=== PATIENT | male | born 1950 | race Caucasian/White ===

== ENCOUNTER 2025-07-19 16:07 | Inpatient (IN) | payer OTHER ==
[~2025-07-19] VITALS: Ht 195.6 cm; Wt 65.8 kg
[2025-07-19] VITALS (9 sets, daily range): BP systolic 90–122; BP diastolic 53–69; PULSE 68–72; RESP 14–21; TEMP 36.6–36.6404; O2SAT 97–100
[2025-07-19] MEDS: VANCOMYCIN 1G PREMIX 200 ML IV ONE (16:30)
[2025-07-19] MEDS: PIPERACILLIN/TAZO 3.375G/50ML 50 ML IV ONE (16:58)
[2025-07-19] MEDS: SODIUM CHLORIDE 0.9% 500 ML IV ONE (17:15)
[2025-07-19 19:05] LABS: HEMATOCRIT. 30.9 % (42.0-52.0); HEMOGLOBIN. 10.5 g/dL (14.0-18.0); MEAN PLATELET VOLUME 8.8 fl (7.4-10.4); PLATELET 92 x1000/uL (130-400); RED BLOOD CELL COUNT 3.31 mill/uL (4.7-6.1); RED CELL DISTRIBUTION WIDTH 19.9 % (11.6-14.6)
[2025-07-19] MEDS: SODIUM CHLORIDE 0.9% 1,000 ML IV ONE (19:11)
[2025-07-19 19:18] LABS: INR 1.6
[2025-07-19 19:21] LABS: TROPONIN I HIGH SENSITIVITY 6 ng/L (3.0-53); UREA NITROGEN BLOOD 40 mg/dL (9-23)
[2025-07-19 19:22] LABS: ASPARTATE AMINOTRANSFERASE 59 IU/L (<34)
[2025-07-19 19:23] LABS: BILIRUBIN DIRECT 1.4 mg/dL (<=3.0); BILIRUBIN TOTAL 2.1 mg/dL (0.1-1.0); PROTEIN TOTAL 5.4 g/dL (6.0-8.3)
[2025-07-19 19:26] LABS: CREATININE 9.3 mg/dL (0.6-1.3)
[2025-07-19 19:31] LABS: BAND% 1.0 % (1.0-6.0); LYMPHOCYTES % MANUAL 10.0 % (20.0-50.0); MONOCYTES % MANUAL 17.0 % (2.0-8.0); NEUTROPHILS % MANUAL 72.0 % (45.0-75.0); PLATELET ESTIMATE DECREASED
[2025-07-19] MEDS ORDERED: NOREPINEPHRINE 8 MG in DEXT 5% WATER 242 ML IV PRN (20:45)
[2025-07-19] MEDS: NOREPINEPHRINE 8MG/250ML PMX 250 ML IV PRN (20:57)
[2025-07-19] MEDS: MIDODRINE HCL 5MG TABLET PO SCH ×2 (21:19→23:07)
[2025-07-19] MEDS ORDERED: DOCUSATE SODIUM 100MG CAPSULE PO PRN (21:45)
[2025-07-19] MEDS ORDERED: IPRATROPIUM/ALBUTEROL 0.5-3(2.5)MG/3ML NEB HHN PRN (21:45)
[2025-07-19] MEDS ORDERED: CEFEPIME 1GM IN DEXT 5% 50ML IV SCH (21:45)
[2025-07-19] MEDS ORDERED: NALOXONE HCL 0.4MG/ML VIAL IV PRN (22:00)
[2025-07-19] MEDS ORDERED: DEXTROSE 50% WATER 50ML SYRINGE IV PRN (22:00)
[2025-07-19] MEDS: PANTOPRAZOLE SODIUM 40 MG/VIAL IV SCH (23:07)
[2025-07-19] MEDS: OCTREOTIDE ACETATE 50 MCG/ML 1ML IV SCH (23:08)
[2025-07-19] MEDS: PHYTONADIONE 10MG/ML INJ SUBCUT SCH (23:08)
[2025-07-19] MEDS: MORPHINE SULFATE 2 MG/ML INJ (NOT FOR IM USE) IV PRN (23:09)
[2025-07-20] VITALS (101 sets, daily range): BP systolic 51–123; BP diastolic 33–96; PULSE 71–112; RESP 11–26; TEMP 36.114–36.8; O2SAT 93–100
[2025-07-20] MEDS ORDERED: MORPHINE SULFATE 4 MG/ML INJ (FOR IV/IM USE) IV SCH ×2
[2025-07-20] MEDS: CEFEPIME 1GM PREMIX 50ML IV SCH ×2 (00:12→20:46)
[2025-07-20] MEDS ORDERED: MORPHINE SULFATE 2 MG/ML INJ (NOT FOR IM USE) IV ONE (02:50)
[2025-07-20] MEDS: MORPHINE SULFATE 2 MG/ML INJ (NOT FOR IM USE) IV SCH (03:00)
[2025-07-20] MEDS ORDERED: MIDODRINE HCL 5MG TABLET PO SCH (06:00)
[2025-07-20] MEDS: INSULIN LISPRO 100 UNITS/ML SUBCUT SCH (06:19)
[2025-07-20] MEDS: MIDODRINE HCL 5MG TABLET PO SCH (06:19)
[2025-07-20] MEDS: BLOOD SUGAR DIAGNOSTIC STRIP TEST SCH (06:19)
[2025-07-20 06:28] LABS: HEMOGLOBIN. 11.9 g/dL (14.0-18.0)
[2025-07-20 06:38] LABS: CREATINE KINASE MB FRACTION 1.9 ng/mL (0.5-3.6)
[2025-07-20 06:39] LABS: TROPONIN I HIGH SENSITIVITY 14.0 ng/L (3.0-53)
[2025-07-20 06:45] LABS: UREA NITROGEN BLOOD 41.0 mg/dL (9-23)
[2025-07-20 07:14] LABS: HEMATOCRIT. 35.4 % (42.0-52.0); RED BLOOD CELL COUNT 3.91 mill/uL (4.7-6.1); RED CELL DISTRIBUTION WIDTH 20.1 % (11.6-14.6)
[2025-07-20 07:15] LABS: CREATININE 9.4 mg/dL (0.6-1.3)
[2025-07-20 08:08] LABS: PHOSPHORUS 4.4 mg/dL (2.5-4.9)
[2025-07-20 08:22] LABS: CREATINE KINASE MB FRACTION 1.7 ng/mL (0.5-3.6)
[2025-07-20 08:23] LABS: TROPONIN I HIGH SENSITIVITY 7.0 ng/L (3.0-53)
[2025-07-20] MEDS: SODIUM ZIRCONIUM CYCLOSILICATE 10GM/PACKET PO NR (08:52)
[2025-07-20] MEDS: SODIUM BICARBONATE 8.4% 50MEQ/50ML SYR IV NR (08:52)
[2025-07-20] MEDS: MORPHINE SULFATE 2 MG/ML INJ (NOT FOR IM USE) IV PRN (09:29)
[2025-07-20 09:51] LABS: BAND% 1.0 % (1.0-6.0); EOSINOPHILS % MANUAL 1.0 % (0.0-5.0); LYMPHOCYTES % MANUAL 4.0 % (20.0-50.0); MONOCYTES % MANUAL 9.0 % (2.0-8.0); NEUTROPHILS % MANUAL 85.0 % (45.0-75.0)
[2025-07-20 09:55] LABS: PLATELET ESTIMATE NORMAL
[2025-07-20 09:56] LABS: PLATELET 161 x1000/uL (130-400)
[2025-07-20 10:28] LABS: INR 1.5
[2025-07-20 10:35] LABS: LACTATE DEHYDROGENASE 188.0 IU/L (120-246)
[2025-07-20 10:37] LABS: T4 FREE 0.86 ng/dL (0.89-1.76)
[2025-07-20] MEDS: CALCIUM GLUCONATE 100MG/ML 10ML VIAL IV NR (10:45)
[2025-07-20] MEDS: OCTREOTIDE 1,000 MCG in SODIUM CHLORIDE 0.9% 98 ML IV SCH (10:45)
[2025-07-20 11:28] LABS: CORTISOL 31.2 ucg/dL
[2025-07-20 11:33] LABS: VITAMIN B12 SERUM 1879 pg/mL (211-911)
[2025-07-20 11:34] LABS: FOLIC ACID (FOLATE) SERUM 11.36 ng/mL (>5.38)
[2025-07-20 12:06] LABS: HEPATITIS A AB IGM NEGATIVE (Negative); HEPATITIS B CORE AB IGM NEGATIVE (Negative)
[2025-07-20 12:07] LABS: HEPATITIS C AB NON REACTIVE (Neg) (Negative)
[2025-07-20] MEDS: NOREPINEPHRINE 8MG/250ML PMX 250 ML IV PRN (12:50)
[2025-07-20] MEDS: ALBUMIN HUMAN 25GM/100ML (25%) IV SCH (15:29)
[2025-07-20 16:46] LABS: BODY FLUID MONOCYTES 14 %; BODY FLUID WBC 50 /cu mm (0-200)
[2025-07-20 16:47] LABS: BODY FLUID RBC 13530 /cu mm (0-2000)
[2025-07-20] MEDS: LACTULOSE 20G/30ML UDC PO SCH (17:45)
[2025-07-21] VITALS (80 sets, daily range): BP systolic 76–119; BP diastolic 36–67; PULSE 88–120; RESP 11–21; TEMP 36.4–37.1; O2SAT 89–98
[2025-07-21 06:05] LABS: HEMATOCRIT. 35.6 % (42.0-52.0); HEMOGLOBIN. 11.8 g/dL (14.0-18.0); MEAN PLATELET VOLUME 8.9 fl (7.4-10.4); PLATELET 173 x1000/uL (130-400); RED BLOOD CELL COUNT 3.94 mill/uL (4.7-6.1); RED CELL DISTRIBUTION WIDTH 20.3 % (11.6-14.6)
[2025-07-21 06:25] LABS: UREA NITROGEN BLOOD 23 mg/dL (9-23)
[2025-07-21 06:29] LABS: ASPARTATE AMINOTRANSFERASE 43 IU/L (<34)
[2025-07-21 06:30] LABS: BILIRUBIN DIRECT 2.6 mg/dL (<=3.0)
[2025-07-21 06:31] LABS: BILIRUBIN TOTAL 4.7 mg/dL (0.1-1.0); PHOSPHORUS 5.3 mg/dL (2.5-4.9); PROTEIN TOTAL 5.4 g/dL (6.0-8.3)
[2025-07-21 06:56] LABS: CREATININE 5.9 mg/dL (0.6-1.3)
[2025-07-21] MEDS: CALCIUM ACETATE 667MG CAPSULE PO SCH (08:30)
[2025-07-21 10:55] LABS: BAND% 4.0 % (1.0-6.0); LYMPHOCYTES % MANUAL 2.0 % (20.0-50.0); MONOCYTES % MANUAL 12.0 % (2.0-8.0); NEUTROPHILS % MANUAL 82.0 % (45.0-75.0)
[2025-07-21 10:56] LABS: PLATELET ESTIMATE NORMAL
[2025-07-21 12:54] LABS: INR 1.4
[2025-07-21] MEDS: ALBUMIN HUMAN 25GM/100ML (25%) IV SCH (13:48)
[2025-07-21] MEDS: FOLIC ACID/VITAMIN B COMP W-C TABLET PO SCH (16:48)
[2025-07-21] MEDS: SODIUM ZIRCONIUM CYCLOSILICATE 10GM/PACKET PO NR (16:49)
[2025-07-21] MEDS ORDERED: ALBUMIN HUMAN 12.5GM/50ML (25%) IV SCH (19:30)
[2025-07-21] MEDS: ALBUMIN HUMAN 12.5GM/50ML (25%) IV SCH (22:35)
[2025-07-22] VITALS (92 sets, daily range): BP systolic 70–132; BP diastolic 38–103; PULSE 86–126; RESP 10–29; TEMP 36.33624–36.8; O2SAT 91–100
[2025-07-22] MEDS: DIPHENHYDRAMINE 12.5MG/5ML UDC PO SCH (01:44)
[2025-07-22 07:09] LABS: HEMATOCRIT. 34.0 % (42.0-52.0); HEMOGLOBIN. 11.5 g/dL (14.0-18.0); MEAN PLATELET VOLUME 9.3 fl (7.4-10.4); PLATELET 131 x1000/uL (130-400); RED BLOOD CELL COUNT 3.82 mill/uL (4.7-6.1); RED CELL DISTRIBUTION WIDTH 20.6 % (11.6-14.6)
[2025-07-22 07:13] LABS: UREA NITROGEN BLOOD 32 mg/dL (9-23)
[2025-07-22 07:17] LABS: ASPARTATE AMINOTRANSFERASE 45 IU/L (<34); BILIRUBIN DIRECT 2.8 mg/dL (<=3.0); BILIRUBIN TOTAL 4.3 mg/dL (0.1-1.0); PHOSPHORUS 4.3 mg/dL (2.5-4.9); PROTEIN TOTAL 5.4 g/dL (6.0-8.3)
[2025-07-22 07:32] LABS: CREATININE 7.1 mg/dL (0.6-1.3)
[2025-07-22 09:07] LABS: CA 19-9 < 2 U/mL (0-35); CARCINOEMBRYONIC AG - SEND OUT 5.8 ng/mL (0.0-4.7)
[2025-07-22 10:59] LABS: EOSINOPHILS % MANUAL 2.0 % (0.0-5.0); LYMPHOCYTES % MANUAL 8.0 % (20.0-50.0); MONOCYTES % MANUAL 16.0 % (2.0-8.0); NEUTROPHILS % MANUAL 74.0 % (45.0-75.0); PLATELET ESTIMATE NORMAL
[2025-07-22] MEDS: FLUDROCORTISONE ACETATE 0.1MG TABLET PO SCH (14:03)
[2025-07-22] MEDS: POLYETHYLENE GLYCOL 3350 (17GM) 1 DOSE PACK PO SCH (18:00)
[2025-07-22] MEDS: DIPHENHYDRAMINE 25MG CAPSULE PO SCH (21:31)
[2025-07-23] VITALS (110 sets, daily range): BP systolic 60–111; BP diastolic 35–90; PULSE 83–135; RESP 11–31; TEMP 36.3–37.1; O2SAT 91–98
[2025-07-23] MEDS: HYDROCODONE/ACETAMINOPHEN 5/325MG TABLET PO PRN (00:21)
[2025-07-23 04:34] LABS: PLATELET 140 x1000/uL (130-400); RED BLOOD CELL COUNT 3.77 mill/uL (4.7-6.1); RED CELL DISTRIBUTION WIDTH 21.1 % (11.6-14.6)
[2025-07-23 04:46] LABS: UREA NITROGEN BLOOD 30 mg/dL (9-23)
[2025-07-23 04:48] LABS: PHOSPHORUS 4.8 mg/dL (2.5-4.9)
[2025-07-23 05:00] LABS: CREATININE 6.2 mg/dL (0.6-1.3)
[2025-07-23] MEDS: ALBUMIN HUMAN 12.5GM/50ML (25%) IV NR ×2 (08:50→14:07)
[2025-07-23] MEDS: ONDANSETRON HCL 4MG/2ML INJ IV PRN (12:54)
[2025-07-23] MEDS: POLYETHYLENE GLYCOL 3350 (17GM) 1 DOSE PACK PO SCH (14:07)
[2025-07-23] MEDS ORDERED: VASOPRESSIN 20 UNIT in SODIUM CHLORIDE 0.9% 99 ML IV PRN (20:30)
[2025-07-23] MEDS: PANTOPRAZOLE 80 MG in SODIUM CHLORIDE 0.9% 100 ML IV SCH (21:29)
[2025-07-23] MEDS: HYDROMORPHONE HCL/PF 1MG/ML INJ IV SCH (21:34)
[2025-07-23] MEDS: ALBUMIN HUMAN 12.5GM/50ML (25%) IV SCH (21:54)
[2025-07-24] VITALS (9 sets, daily range): BP systolic 78–96; BP diastolic 33–60; PULSE 98–112; RESP 12–27; O2SAT 89–98
[2025-07-24 04:01] LABS: HEMATOCRIT. 32.1 % (42.0-52.0); HEMOGLOBIN. 10.0 g/dL (14.0-18.0); RED BLOOD CELL COUNT 3.17 mill/uL (4.7-6.1); RED CELL DISTRIBUTION WIDTH 22.5 % (11.6-14.6)
[2025-07-24 04:14] LABS: UREA NITROGEN BLOOD 39 mg/dL (9-23)
[2025-07-24 04:16] LABS: PHOSPHORUS 7.8 mg/dL (2.5-4.9)
[2025-07-24] MEDS: HYDROMORPHONE HCL/PF 1MG/ML INJ IV SCH (04:17)
[2025-07-24 04:19] LABS: CREATININE 7.5 mg/dL (0.6-1.3)
[2025-07-24] MEDS ORDERED: SODIUM ZIRCONIUM CYCLOSILICATE 10GM/PACKET PO SCH (05:00)
[2025-07-24 09:46] LABS: LYMPHOCYTES % MANUAL 7.0 % (20.0-50.0); MONOCYTES % MANUAL 6.0 % (2.0-8.0); NEUTROPHILS % MANUAL 87.0 % (45.0-75.0)
[2025-07-24 09:47] LABS: PLATELET ESTIMATE NORMAL
[2025-07-24 09:48] LABS: PLATELET 170 x1000/uL (130-400)
== END 2025-07-24 04:27 | DRG 871 ==
LOC: ER 16:07 → EDBEDREQSVC 20:20 → EDBEDREQTM 20:20 → EDBEDREQ 20:20 → ENRESERV 20:32 → CANRESERV 20:46 → ENRESERVTM 20:46 → EDBEDREQSVC 20:51 → ENRESERV 21:35 → MICUSO 22:12
PROVIDERS: ADMIT Internal Medicine; ATTEND Internal Medicine
PROC: 0W9G3ZZ Drainage of Peritoneal Cavity, Percutaneous Approach (ICD-10-PCS; principal; 2025-07-20)
PROC: 5A1D70Z Performance of Urinary Filtration, Intermittent, Less than 6 Hours Per Day (ICD-10-PCS; 2025-07-20)
PROC: 5A1D70Z Performance of Urinary Filtration, Intermittent, Less than 6 Hours Per Day (ICD-10-PCS; 2025-07-22)
DX: A41.9 Sepsis, unspecified organism (principal); E43 Unspecified severe protein-calorie malnutrition; N18.6 End stage renal disease; R65.21 Severe sepsis with septic shock; J96.01 Acute respiratory failure with hypoxia; I12.0 Hypertensive chronic kidney disease with stage 5 chronic kidney disease or end stage renal disease; D68.4 Acquired coagulation factor deficiency; E87.1 Hypo-osmolality and hyponatremia; K76.6 Portal hypertension; R18.8 Other ascites; Z68.1 Body mass index [BMI] 19.9 or less, adult; E87.20 Acidosis, unspecified; K92.1 Melena; D69.6 Thrombocytopenia, unspecified; E11.22 Type 2 diabetes mellitus with diabetic chronic kidney disease; D64.9 Anemia, unspecified; E87.5 Hyperkalemia; E86.1 Hypovolemia; I86.8 Varicose veins of other specified sites; K74.60 Unspecified cirrhosis of liver; E03.8 Other specified hypothyroidism; E78.00 Pure hypercholesterolemia, unspecified; K57.30 Diverticulosis of large intestine without perforation or abscess without bleeding; K59.00 Constipation, unspecified; L85.3 Xerosis cutis; N40.0 Benign prostatic hyperplasia without lower urinary tract symptoms; R57.8 Other shock; Z85.05 Personal history of malignant neoplasm of liver; Z91.148 Patient's other noncompliance with medication regimen for other reason; Z99.2 Dependence on renal dialysis
CPT/HCPCS: 36415; 49083; 71045; 74018; 74176; 76705; 78227; 80048; 80076; 82024; 82040; 82105; 82140; 82378; 82533; 82550; 82553; 82607; 82746; 82962; 83036; 83605; 83615; 83735; 83880; 83930; 84100; 84145; 84439; 84443; 84484; 85014; 85018; 85025; 85027; 86301; 86705; 86709; 86850; 86900; 87340; 90935; 93005; 93970; 99291; A4606; A9537; J0612; J0692; J1171; J1815; J2270; J2354; J2405; J2470; J2543; J3373; J3430; J3490; J7030; J7040; J7050; P9047; Q0163